=== PATIENT | male | born 1965 | race Caucasian/White ===

== ENCOUNTER 2019-03-07 07:34 | Day surgery (SDC) | payer OTHER ==
[~2019-03-07 07:34] MED LIST: SEVOFLURANE 15 MIN
[2019-03-07] MEDS ORDERED: SOD CHLORIDE 0.9% 1,000 ML IV (08:00)
[2019-03-07] MEDS ORDERED: MIDAZOLAM 1 MG/ML 2 ML INJ (09:41)
[2019-03-07] MEDS ORDERED: FENTAnyl 50 MCG/ML VIAL (09:46)
[2019-03-07] MEDS ORDERED: ROPIVACAINE 0.5 % 30 ML VIAL (09:47)
[2019-03-07] MEDS ORDERED: ROCURONIUM 50 MG INJ (09:57)
[2019-03-07] MEDS ORDERED: LIDOCAINE 2% (SDV) 5 ML INJ (09:57)
[2019-03-07] MEDS ORDERED: SUCCINYLCHOLINE CHLORIDE 100 MG/5 ML SYG IV (09:57)
[2019-03-07] MEDS ORDERED: PROPOFOL 40 ML (09:57)
[2019-03-07] MEDS ORDERED: FAMOTIDINE 20 MG INJ (09:58)
[2019-03-07] MEDS: CEFAZOLIN 2 GM/50 ML (PMX) 50 ML IVPB (09:58)
[2019-03-07] MEDS ORDERED: DEXAMETHASONE 4 MG/ML 5 ML INJ (09:58)
[2019-03-07] MEDS ORDERED: CEFAZOLIN 1 GM INJ (09:58)
[2019-03-07] MEDS ORDERED: ONDANSETRON 4 MG INJ (09:58)
[2019-03-07] MEDS ORDERED: HYDROmorphONE 2 MG/ML SYG (10:01)
[2019-03-07] MEDS ORDERED: EPHEDrine 25 MG/5 ML SYG (10:13)
[2019-03-07] MEDS ORDERED: GLYCOPYRROLATE 0.4 MG INJ (10:21)
[2019-03-07] MEDS ORDERED: NEOSTIGMINE 3 MG/3 ML SYRINGE (10:21)
[2019-03-07] MEDS ORDERED: OXYCODONE/ACETAMINOPHEN (5/325) TAB PO (11:00)
[2019-03-07] MEDS ORDERED: PROCHLORPERAZINE 10 MG INJ IV (11:00)
[2019-03-07] MEDS ORDERED: DIPHENHYDRAMINE 50 MG INJ IV (11:00)
[2019-03-07] MEDS ORDERED: MEPERIDINE 25 MG INJ IV (11:00)
[2019-03-07] MEDS ORDERED: ONDANSETRON 4 MG INJ IV (11:00)
[2019-03-07] MEDS ORDERED: HYDROmorphONE 1 MG/5 ML IV SYRINGE IV ×3 (11:00)
[2019-03-07] MEDS ORDERED: FENTAnyl 50 MCG/ML VIAL IV ×3 (11:00)
[2019-03-07] MEDS: HYDROCODONE/APAP (5/325) TAB PO (11:05)
== END 2019-03-07 12:06 | disposition home or self-care (01) ==
LOC: SDS 07:34
DX: K80.20 Calculus of gallbladder without cholecystitis without obstruction (principal)
CPT/HCPCS: 47562; 88304